=== PATIENT | female | born 1990 | race Asian ===

== ENCOUNTER → 2016-05-16 | Emergency (ER) | payer BC ==
[~2016-05-16] VITALS: Ht 167.6 cm; Wt 66.5 kg
[~2016-05-16] MED LIST: FER325 PO; IBUP-1542 PO; ONDANSETRON 4 MG INJ IV STA; ORTNOV PO; PANT40TA3 PO; PANTOPRAZOLE 40 MG INJ IV ONE; SOD CHLORIDE 0.9% 1,000 ML IV STA; morphine 4 MG/ML VIAL IV STA
[2016-05-16 01:16] VITALS: Ht 167.6 cm; Wt 66.5 kg
--- NOTE | 2016-05-16 01:32 | ERA ---
ER Documentation Chief Complaint Date/Time DATE: 05/16/16 TIME: 01:31 Chief Complaint sharp, " twisting "epigastric pain since 3 hours ago, HPI The patient is a 26-year-old female, presenting to the ER because of epigastric abdominal pain that began about 3 hours prior to arrival, around 10 PM after eating pasta an hour before that. She has similar symptoms previously, the pain is 9/10, denies fever, chills, neck pain, chest pain, dyspnea. She denies nausea, vomiting, dysuria, diarrhea, constipation.. She does not smoke nor drink Past medical history: Gastritis, GERD Past surgical history: None ROS All systems reviewed and are negative except as per history of present illness. Medications Home Meds Active Scripts Pantoprazole* (Protonix*) 40 Mg Tablet.dr, 40 MG PO DAILY, #20 TAB Prov:MAGEN MORALES MD 05/16/16 Ibuprofen* (Ibuprofen*) 600 Mg Tablet, 600 MG PO Q6H Y for PAIN, #15 TAB Prov:JOSE MCCLURE PA-C 02/07/16 Ferrous Sulfate* (Ferrous Sulfate*) 325 Mg Tabec, 325 MG PO DAILY, #30 TAB Prov:JOSE MCCLURE PA-C 02/07/16 Norethindrone-Ethinyl Estradiol (Ortho-Novum ()) 0.035-1 Mg Tablet, 1 TAB PO DAILY, #1 PACKET Prov:JOSE MCCLURE PA-C 02/07/16 Allergies Allergies: Coded Allergies: No Known Drug Allergy (Verified Allergy, Unknown, 02/07/16) PMhx/Soc Hx Alcohol Use: No Hx Substance Use: No Hx Tobacco Use: No Physical Exam Vitals Vital Signs Date Time Temp Pulse Resp B/P Pulse Ox O2 Delivery O2 Flow Rate FiO2 05/16/16 01:45 98.3 55 20 115/64 100 Room Air 05/16/16 01:16 98.3 77 20 130/74 100 Physical Exam Const: No acute distress. Head: Atraumatic. Eyes: Normal Conjunctiva. ENT: Normal External Ears, Nose and Mouth. Neck: Full range of motion. No meningismus. Resp: Clear to auscultation bilaterally. Cardio: Regular rate and rhythm, no murmurs. Abd: Soft, non distended, normal bowel sounds, mild epigastric abdominal tenderness, no right lower quadrant, right upper quadrant, CVA tenderness Skin: No petechiae or rashes. Back: No midline or flank tenderness. Ext: No cyanosis, or edema. Neur: Awake and alert. No focal deficit Psych: Normal Mood and Affect. Result Diagram: 05/16/1613905/16/16 0140 Results 24 hrs Laboratory Tests Test 05/16/16 01:40 05/16/16 02:25 Alanine Aminotransferase (ALT/SGPT) 30IU/L Albumin 4.3g/dl Albumin/Globulin Ratio 1.02 Alkaline Phosphatase 45IU/L Anion Gap 17 Aspartate Amino Transf (AST/SGOT) 27IU/L Basophils # 0.010^3/ul Basophils % 0.5% Blood Urea Nitrogen 16mg/dl Calcium Level 9.4mg/dl Carbon Dioxide Level 25mmol/L Chloride Level 105mmol/L Creatinine 0.82mg/dl Direct Bilirubin 0.00mg/dl Eosinophils # 0.110^3/ul Eosinophils % 0.8% Globulin 4.20g/dl Glucose Level 79mg/dl Hematocrit 42.4% Hemoglobin 13.4g/dl Indirect Bilirubin 0.3mg/dl Lipase 106U/L Lymphocytes # 2.710^3/ul Lymphocytes % 36.3% Mean Corpuscular Hemoglobin 26.6pg Mean Corpuscular Hemoglobin Concent 31.6g/dl Mean Corpuscular Volume 84.3fl Mean Platelet Volume 9.9fl Monocytes # 0.610^3/ul Monocytes % 8.3% Neutrophils # 4.010^3/ul Neutrophils % 54.0% Nucleated Red Blood Cells # 0.010^3/ul Nucleated Red Blood Cells % 0.0/100WBC Platelet Count 54267^3/UL Potassium Level 3.7mmol/L Red Blood Count 5.0310^6/ul Red Cell Distribution Width 16.6% Sodium Level 143mmol/L Total Bilirubin 0.3mg/dl Total Protein 8.5g/dl White Blood Count 7.410^3/ul Bedside Urine Blood Negative Bedside Urine Glucose (UA) Negative Bedside Urine Ketones (LAB) Negative Bedside Urine Leukocyte Esterase (L Negative Bedside Urine Nitrite (LAB) Negative Bedside Urine Protein (LAB) Negative Bedside Urine pH (LAB) 6.0 Current Medications Medications (Trade) Dose Ordered Sig/Brett Route PRN Reason Start Time Stop Time Status Last Admin Dose Admin Sodium Chloride (NS) 1,000 ml @ 1,000 mls/hr Q1H STAT IV 05/16/16 01:39 05/16/16 02:38 DC 05/16/16 01:55 Morphine Sulfate (morphine) 4 mg ONCE STAT IV 05/16/16 01:39 05/16/16 01:40 DC 05/16/16 01:55 Ondansetron HCl (Zofran Inj) 4 mg ONCE STAT IV 05/16/16 01:39 05/16/16 01:40 DC 05/16/16 01:54 Pantoprazole (Protonix Iv) 40 mg ONCE ONCE IV 05/16/16 02:00 05/16/16 02:01 DC 05/16/16 01:54 Procedures/[place] [address] Radiology Main Line: [phone] DIAGNOSTIC IMAGING REPORT Patient: FARHAN IGLESIAS : 1990 Age: 26 Sex: F MR #: [id number] DOS: 05/16/16 0139 Ordering MD: MAGEN MORALES MD Location: E/R Room/Bed: PROCEDURE: Ultrasound of the abdomen. CLINICAL INDICATION: Right upper quadrant pain. TECHNIQUE: Sonographic images of the abdomen were performed. COMPARISON: No pertinent prior examinations were submitted for comparison. FINDINGS: Liver: The liver is normal in echogencity and size measuring approximately 17.7 cm. The hepatic veins and portal veins are patent with appropriate directional flow. No intrahepatic ductal dilatation is seen. Gallbladder: The gallbladder is not distended and has normal wall thickness. No pericholecystic fluid or gallstones are visualized. The common duct measures 2.6 mm. Pancreas: There is limited evaluation of the pancreatic body and tail. The visualized portions of the pancreas are unremarkable. Kidneys: The right kidney measures 10.5 cm. There is normal corticomedullary differentiation. There is no evidence of renal calculus or hydronephrosis. IVC: The visualized portion of the inferior vena cava is unremarkable. Aorta: Normal in size. Free fluid: None. IMPRESSION: Unremarkable right upper quadrant ultrasound. RPTAT: HIKT .Capo Booker MD, MD Date Time Electronically viewed and signed by .Capo Booker MD, MD on 05/16/2016 02:28 .T/ CC: MAGEN MORALES MD MEDICAL MAKING DECISION: The patient is a 26-year-old female, presenting with acute on chronic epigastric abdominal pain of unclear etiology, most likely due to gastritis and GERD. She was treated with 1 L normal saline for clinical dehydration, morphine 4 mg IV for pain, Zofran 4 mg for nausea, Protonix 40 mg IV with good response. The differential diagnoses considered include but are not limited to cholelithiasis, cholecystitis, cystitis, pancreatitis, hepatitis , gastritis, peptic ulcer disease, gastric ulcer, appendicitis, diverticulitis, cholangitis, choledocholithiasis, partial small bowel obstruction. Departure Diagnosis: Primary Impression: Epigastric pain Condition: Good Comments She was discharged with Protonix I discussed the findings with the patient. I advised the patient to follow-up with the primary physician in about 1-2 days, sooner if needed and return if any concern. The patient's blood pressure was elevated (>120/80) but appears stable without evidence of hypertension emergency or urgency. The patient was counseled about the risks of hypertension and urged to pursue outpatient monitoring and therapy within a week with their primary care physician. MAGEN MORALES MD May 16, 2016 01:32
[2016-05-16 01:55] LABS: ADD SCAN DIFF NO
[2016-05-16 01:58] LABS: BASOPHILS % 0.5 % (0.0-2.0); EOSINOPHILS # 0.1 10^3/ul (0.0-0.5); EOSINOPHILS % 0.8 % (0.0-7.0); HEMATOCRIT 42.4 % (37.0-47.0); HEMOGLOBIN 13.4 g/dl (12.0-16.0); LYMPHOCYTES # 2.7 10^3/ul (0.8-2.9); LYMPHOCYTES % 36.3 % (15.0-51.0); MEAN CORPUSCULAR HEMOGLOBIN 26.6 pg (29.0-33.0); MEAN CORPUSCULAR HGB CONC 31.6 g/dl (32.0-37.0); MEAN CORPUSCULAR VOLUME 84.3 fl (82.0-101.0); MEAN PLATELET VOLUME 9.9 fl (7.4-10.4); MONOCYTE # 0.6 10^3/ul (0.3-0.9); MONOCYTES % 8.3 % (0.0-11.0); PLATELET COUNT 320 10^3/UL (140-415); RED BLOOD COUNT 5.03 10^6/ul (4.20-5.40); RED CELL DISTRIBUTION WIDTH 16.6 % (11.5-14.5); WHITE BLOOD COUNT 7.4 10^3/ul (4.8-10.8)
[2016-05-16 02:16] LABS: ALBUMIN 4.3 g/dl (3.3-4.9)
[2016-05-16 02:17] LABS: POTASSIUM 3.7 mmol/L (3.5-5.1)
[2016-05-16 02:19] LABS: ALBUMIN/GLOBULIN RATIO 1.02; BILIRUBIN,INDIRECT 0.3 mg/dl (0-1.1); BILIRUBIN,TOTAL 0.3 mg/dl (0.2-1.3); CREATININE 0.82 mg/dl (0.44-1.00); TOTAL PROTEIN 8.5 g/dl (6.1-8.1)
[2016-05-16 02:20] LABS: CALCIUM 9.4 mg/dl (8.4-10.2)
[2016-05-16 02:23] LABS: URINE BLOOD (Dip) POC Negative (NEGATIVE)
--- NOTE | 2016-05-16 02:29 | RADRPT ---
PROCEDURE: Ultrasound of the abdomen. CLINICAL INDICATION: Right upper quadrant pain. TECHNIQUE: Sonographic images of the abdomen were performed. COMPARISON: No pertinent prior examinations were submitted for comparison. FINDINGS: Liver: The liver is normal in echogencity and size measuring approximately 17.7 cm. The hepatic vei ns and portal veins are patent with appropriate directional flow. No intrahepatic ductal dilatation is seen. Gallbladder: The gallbladder is not distended and has normal wall thickness. No pericholecystic flu id or gallstones are visualized. The common duct measures 2.6 mm. Pancreas: There is limited evaluation of the pancreatic body and tail. The visualized portions of the pancreas are unremarkable. Kidneys: The right kidney measures 10.5 cm. There is normal corticomedullary differentiation. Ther e is no evidence of renal calculus or hydronephrosis. IVC: The visualized portion of the inferior vena cava is unremarkable. Aorta: Normal in size. Free fluid: None. IMPRESSION: Unremarkable right upper quadrant ultrasound. RPTAT: HIKT .Capo Booker MD, MD Date Time Electronically viewed and signed by .Capo Booker MD, on 05/16/2016 02:28 .T/
[2016-05-16 04:57] VITALS: BP 125/73; PULSE 79; RESP 20; TEMP 98.3
== END | disposition home or self-care (01) ==
LOC: E/R 01:14
DX: R10.13 Epigastric pain (principal)
CPT/HCPCS: 36415; 76705; 80053; 81003; 83690; 85025; 96374; 96375; 99285; C9113; J2270; J2405; J7030